=== PATIENT | female | born 1985 | race Caucasian/White ===

== ENCOUNTER 2019-02-14 23:10 | Emergency (ER) | payer MEDICAID ==
[~2019-02-14] VITALS: Ht 160 cm; Wt 93.0 kg
[2019-02-14 23:24] VITALS: BP 131/95
--- NOTE | 2019-02-14 23:36 | NUR ---
PT TRIAGED, SENT BACK TO LOBBY AWAITING BED
[2019-02-14] MEDS ORDERED: NACL 0.9% 1,000 ML IV ONE (23:45)
[2019-02-14] MEDS ORDERED: PANTOPRAZOLE 40 MG INJ VIAL IVP ONE (23:45)
--- NOTE | 2019-02-14 23:58 | NUR ---
PT AMBULATED TO BED 5
[2019-02-15 00:01] LABS: BASOPHILS # (AUTO) 0.1 K/uL (0.00-0.22); BASOPHILS % (AUTO) 0.8 % (0.0-2.0); EOSINOPHILS # (AUTO) 0.3 K/uL (0-0.4); EOSINOPHILS % (AUTO) 2.9 % (0.0-4.0); HEMATOCRIT 39.8 % (36-48); HEMOGLOBIN 13.4 g/dL (12.0-16.0); LYMPHOCYTES # (AUTO) 1.8 K/uL (2.5-16.5); LYMPHOCYTES % (AUTO) 16.9 % (20.5-51.1); MEAN CORPUSCULAR HEMOGLOBIN 29 pg (27-31); MEAN CORPUSCULAR HGB CONC 34 g/dL (33-37); MEAN CORPUSCULAR VOLUME 86.9 fL (80-94); MONOCYTES # (AUTO) 0.4 K/uL (0.8-1.0); MONOCYTES % (AUTO) 3.5 % (1.7-9.3); NEUTROPHILS % (AUTO) 75.9 % (42.2-75.2); PLATELET COUNT (AUTO) 208 K/uL (140-450); RED BLOOD CELL COUNT(AUTO) 4.58 MIL/uL (4.20-5.40); RED CELL DISTRIBUTION WIDTH 15.4 % (11.6-13.7); WHITE BLOOD COUNT (AUTO) 10.5 K/uL (4.8-10.8)
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
[2019-02-15 00:03] LABS: APPEARANCE,URINE CLEAR (CLEAR); BILIRUBIN,URINE NEGATIVE (NEGATIVE); BLOOD, URINE 2+ (NEGATIVE); COLOR,URINE YELLOW (YELLOW); LEUKOCYTE ESTERASE ,URINE NEGATIVE (NEGATIVE); NITRITE, URINE NEGATIVE (NEGATIVE); PH,URINE 5.5 (5.0-9.0); UGLUCOSE NEGATIVE (NEGATIVE)
[2019-02-15 00:08] LABS: ANION GAP 12.1 (8-16); CARBON DIOXIDE 25.1 mmol/L (21-32); CREATININE 0.6 mg/dL (0.6-1.3); POTASSIUM 4.2 mmol/L (3.5-5.1)
[2019-02-15 00:15] LABS: ALBUMIN 3.4 g/dL (3.4-5.0); TOTAL BILIRUBIN 0.2 mg/dL (0.0-1.0)
[2019-02-15 00:21] LABS: RBC,URINE 11-20 (MOD) /HPF (0-5); WBC,URINE 0-5 /HPF (0-5)
--- NOTE | 2019-02-15 00:55 | NUR ---
PT RESTING IN BED WITH EYES CLOSED, EASILY ARROUSABLE. VSS. WILL CONTINUE TO MONITOR.
[2019-02-15] MEDS ORDERED: DICYCLOMINE HCL LIQUID 20 MG, ALUMINUM HYD/MAG/SIMETHICONE 30 ML, LIDOCAINE VISCOUS 2% ... PO ONE ×3 (01:05)
[2019-02-15] MEDS ORDERED: MORPHINE SULFATE 4 MG/ML SYR IVP ONE (01:05)
[2019-02-15 02:03] VITALS: BP 115/79
--- NOTE | 2019-02-15 02:03 | NUR ---
Patient discharged with v/s stable. Written and verbal after care instructions given and explained. Patient alert, oriented and verbalized understanding of instructions. Ambulatory with steady gait. All questions addressed prior to discharge. ID band removed. Patient advised to follow up with PMD. Rx of RANITIDINE, CIPROFLOXACIN WAS given. Patient educated on indication of medication including possible reaction and side effects. Opportunity to ask questions provided and answered. PT STATED HER PAIN DECREASED TO 0/10 PRIOR TO D/C
== END 2019-02-15 02:03 | disposition home or self-care (01) ==
LOC: MED 23:10
DX: N39.0 Urinary tract infection, site not specified (principal); K29.70 Gastritis, unspecified, without bleeding; F41.9 Anxiety disorder, unspecified; F32.9 Major depressive disorder, single episode, unspecified
CPT/HCPCS: 36415; 80053; 81001; 83690; 85025; 87086; 96361; 96374; 96375; 99283; C9113; J2270; J7030

== ENCOUNTER 2019-09-17 18:51 | Emergency (ER) | payer MEDICAID ==
[~2019-09-17] VITALS: Ht 158.8 cm; Wt 92.5 kg
[2019-09-17 19:03] VITALS: BP 134/98
--- NOTE | 2019-09-17 19:30 | NUR ---
PT AMBULATED TO BED 3 WITH STEADY GAIT.
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
--- NOTE | 2019-09-17 19:45 | NUR ---
MALINA DOUGLAS AT BEDSIDE.
[2019-09-17] MEDS ORDERED: HYDROcodone/APAP 5/325 MG 1 TAB TAB PO ONE (20:15)
--- NOTE | 2019-09-17 20:15 | NUR ---
NORCO 5/325MG GIVEN PO FOR 8/10 FACIAL PAIN. PT WILL BE GIVEN A RIDE HOME BY PARTNER.
[2019-09-17 20:30] VITALS: BP 134/98
== END 2019-09-17 20:30 | disposition home or self-care (01) ==
LOC: MED 18:51
DX: K08.89 Other specified disorders of teeth and supporting structures (principal)
CPT/HCPCS: 99283

== ENCOUNTER 2019-09-25 13:53 | Emergency (ER) | payer MEDICAID ==
[~2019-09-25] VITALS: Ht 160 cm; Wt 94.0 kg
[2019-09-25 13:58] VITALS: BP 110/71
--- NOTE | 2019-09-25 14:15 | NUR ---
PATIENT AMBULATED TO BED 4.
[2019-09-25] MEDS ORDERED: AMPICILLIN/SULBACTAM 3 GM in NACL 0.9% 100 ML IV ONE (14:20)
[2019-09-25] MEDS ORDERED: KETOROLAC 30 MG/ML VIAL IVP ONE (14:20)
[2019-09-25] MEDS ORDERED: AMPICILLIN/SULBACTAM 3 GM VIAL ONE (14:40)
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
--- NOTE | 2019-09-25 15:54 | NUR ---
iv antibiotics done, pt awake , alert.
--- NOTE | 2019-09-25 15:58 | NUR ---
dr galvez ordered dc of iv. and at bedside reevalauting pt.
--- NOTE | 2019-09-25 16:00 | NUR ---
Patient discharged with v/s stable. Written and verbal after care instructions given and Dr galvez explained regarding cellulitis. Patient alert, oriented and verbalized understanding of instructions. Ambulatory with steady gait. All questions addressed prior to discharge. ID band removed. Patient advised to follow up with PMD. Rx of penicillin given. Patient educated on indication of medication including possible reaction and side effects. Opportunity to ask questions provided and answered.Dr galvez discharge pt.
[2019-09-25 16:01] VITALS: BP 110/71
== END 2019-09-25 16:00 | disposition home or self-care (01) ==
LOC: MED 13:53
DX: K12.2 Cellulitis and abscess of mouth (principal); Z98.890 Other specified postprocedural states
CPT/HCPCS: 36415; 87040; 96365; 96375; 99284; J0295; J1885

== ENCOUNTER 2019-11-28 20:36 | Emergency (ER) | payer SELFPAY ==
[~2019-11-28] VITALS: Ht 157.5 cm; Wt 93.4 kg
[2019-11-28 20:41] VITALS: BP 118/83
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
[2019-11-28] MEDS ORDERED: LIDOCAINE/EPI 1% 1:100000 20 ML VIAL INJ ONE (20:55)
--- NOTE | 2019-11-28 20:58 | NUR ---
SUTURE SETUP AT BEDSIDE
--- NOTE | 2019-11-28 21:00 | NUR ---
ERMD AT BEDSIDE
[2019-11-28] MEDS ORDERED: BACITRACIN OINT 500 UNITS/GM PKT TP ONE ×2 (21:13→21:15)
[2019-11-28 21:46] VITALS: BP 118/83
--- NOTE | 2019-11-28 21:46 | NUR ---
Patient discharged with v/s stable. Written and verbal after care instructions given and explained. Patient verbalized understanding. Ambulatory with steady gait. All questions addressed prior to discharge. Advised to follow up with PMD.
== END 2019-11-28 21:46 | disposition home or self-care (01) ==
LOC: MED 20:36
DX: S61.411A Laceration without foreign body of right hand, initial encounter (principal); W26.9XXA Contact with unspecified sharp object(s), initial encounter; Y93.89 Activity, other specified; Y92.89 Other specified places as the place of occurrence of the external cause; Y99.8 Other external cause status
CPT/HCPCS: 12002; 90471; 90715; 99283; J2001

== ENCOUNTER 2019-12-30 22:53 | Emergency (ER) | payer MEDICAID ==
[~2019-12-30] VITALS: Ht 157.5 cm; Wt 96.2 kg
[2019-12-30 22:56] VITALS: BP 122/77
[2019-12-30] MEDS ORDERED: DICYCLOMINE HCL LIQUID 10 MG/5 ML UDC PO ONE (23:25)
[2019-12-30] MEDS ORDERED: ALUMINUM HYD/MAG/SIMETHICONE 30 ML UDC PO ONE (23:25)
[2019-12-30] MEDS ORDERED: KETOROLAC 60 MG/2 ML VIAL IM ONE (23:25)
[2019-12-30] MEDS ORDERED: LIDOCAINE VISCOUS 2% 20 ML UDC PO ONE (23:25)
[2019-12-31 00:25] VITALS: BP 122/77
== END 2019-12-31 00:25 | disposition home or self-care (01) ==
LOC: MED 22:53
DX: S39.012A Strain of muscle, fascia and tendon of lower back, initial encounter (principal); X58.XXXA Exposure to other specified factors, initial encounter; Y93.89 Activity, other specified; Y92.89 Other specified places as the place of occurrence of the external cause; Y99.8 Other external cause status; K29.70 Gastritis, unspecified, without bleeding
CPT/HCPCS: 81002; 81025; 96372; 99283; J1885; 96374

== ENCOUNTER 2020-01-09 23:55 | Emergency (ER) | payer MEDICAID ==
[~2020-01-09] VITALS: Ht 157.5 cm; Wt 99.8 kg
[2020-01-09 23:59] VITALS: BP 127/84
--- NOTE | 2020-01-10 00:05 | NUR ---
PT AMBULATED TO BED 1 WITH STEADY GAIT
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
[2020-01-10] MEDS ORDERED: LIDOCAINE 2% 1000 MG/50 ML VIAL INJ ONE (00:40)
--- NOTE | 2020-01-10 00:44 | NUR ---
Dr. Chaudhry examining patient.
[2020-01-10] MEDS ORDERED: BACITRACIN OINT 500 UNITS/GM PKT TP ONE ×2 (00:47→00:50)
[2020-01-10] MEDS ORDERED: IBUPROFEN 800 MG TAB ONE ×2 (00:52→00:55)
[2020-01-10] MEDS ORDERED: NEOMYCIN/POLYMYXIN/BACITRACIN 0.9 GM/1 PKT TP ONE (00:55)
[2020-01-10] MEDS ORDERED: IBUPROFEN 800 MG TAB PO ONE (00:55)
[2020-01-10 01:18] VITALS: BP 127/84
--- NOTE | 2020-01-10 01:19 | NUR ---
Patient discharged with v/s stable. Written and verbal after care instructions given and explained. Patient alert, oriented and verbalized understanding of instructions. Ambulatory with steady gait. All questions addressed prior to discharge. ID band removed. Patient advised to follow up with PMD. Rx of BACTRIM; MOTRIN given. Patient educated on indication of medication including possible reaction and side effects. Opportunity to ask questions provided and answered.
== END 2020-01-10 01:19 | disposition home or self-care (01) ==
LOC: MED 23:55
DX: S61.412A Laceration without foreign body of left hand, initial encounter (principal); W26.0XXA Contact with knife, initial encounter; Y93.89 Activity, other specified; Y92.89 Other specified places as the place of occurrence of the external cause; Y99.8 Other external cause status
CPT/HCPCS: 12001; 99283; J2001

== ENCOUNTER 2020-01-18 23:00 | Emergency (ER) | payer MEDICAID ==
[~2020-01-18] VITALS: Ht 157.5 cm; Wt 95.3 kg
[2020-01-18 23:05] VITALS: BP 144/99
--- NOTE | 2020-01-18 23:05 | NUR ---
PT CAME IN FOR SUTURE RECHECK, PLACED 4 DAYS AGO, STATING POSSIBLE INFECTION ON L THUMB. NO REDNESS OR DEFORMITIES NOTED. CAP REFILL LESS THAN 2 SECONDS. PMH: NONE NKA
--- NOTE | 2020-01-18 23:05 | NUR ---
PT TAKEN TO BED 4
--- NOTE | 2020-01-18 23:23 | NUR ---
Dr. Chaudhry examining patient.
== END 2020-01-18 23:30 | disposition home or self-care (01) ==
LOC: MED 23:00
DX: S61.412D Laceration without foreign body of left hand, subsequent encounter (principal); X58.XXXD Exposure to other specified factors, subsequent encounter; Z48.02 Encounter for removal of sutures
CPT/HCPCS: 82948; 99283

== ENCOUNTER 2020-04-17 14:34 | Emergency (ER) | payer MEDICAID ==
[~2020-04-17] VITALS: Ht 167.6 cm; Wt 94.3 kg
[2020-04-17 14:37] VITALS: BP 116/80
[2020-04-17 14:50] VITALS: BP 116/80
--- NOTE | 2020-04-17 14:50 | NUR ---
DR BRADSHAW AT BEDSIDE EVALAUTING PT.
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
[2020-04-17] MEDS ORDERED: KETOROLAC 60 MG/2 ML VIAL IM ONE (15:00)
--- NOTE | 2020-04-17 15:20 | NUR ---
denny [email or web address].[email or web address] parsons and davey puga.
--- NOTE | 2020-04-17 15:20 | NUR ---
PATIENT ELOPED FROM FACILITY. DISCHARGE INSTRUCTIONS NOT GIVEN TO PATIENT. DR. hou NOTIFIED.
== END 2020-04-17 15:20 | disposition left against medical advice (07) ==
LOC: MED 14:34
DX: M54.9 Dorsalgia, unspecified (principal); F17.200 Nicotine dependence, unspecified, uncomplicated; Z71.6 Tobacco abuse counseling
CPT/HCPCS: 99281; J1885

== ENCOUNTER 2020-04-19 01:50 | Emergency (ER) | payer MEDICAID ==
[~2020-04-19] VITALS: Ht 157.5 cm; Wt 94.3 kg
[2020-04-19 01:52] VITALS: BP 124/76
--- NOTE | 2020-04-19 01:52 | NUR ---
PT AMBULATED TO BED #11
--- NOTE | 2020-04-19 02:05 | NUR ---
COVERING PRIMARY RN FOR LUNCH RELIEF--- SEE COMPLETE ASSESSMENT FOR ADDITIONAL INFORMAITION
[2020-04-19] MEDS ORDERED: KETOROLAC 30 MG/ML VIAL IM ONE (02:10)
[2020-04-19 02:33] VITALS: BP 124/76
--- NOTE | 2020-04-19 02:33 | NUR ---
Patient discharged with v/s stable. Written and verbal after care instructions given and explained. Patient alert, oriented and verbalized understanding of instructions. Ambulatory with steady gait. All questions addressed prior to discharge. ID band removed. Patient advised to follow up with PMD. Rx of IBUPROFEN & FLEXERIL given. Patient educated on indication of medication including possible reaction and side effects. Opportunity to ask questions provided and answered.
== END 2020-04-19 02:33 | disposition home or self-care (01) ==
LOC: MED 01:50
DX: S16.1XXA Strain of muscle, fascia and tendon at neck level, initial encounter (principal); S39.012A Strain of muscle, fascia and tendon of lower back, initial encounter; V03.99XA Pedestrian with other conveyance injured in collision with car, pick-up truck or van, unspecified whether traffic or nontraffic accident, initial encounter; Y93.89 Activity, other specified; Y92.89 Other specified places as the place of occurrence of the external cause; Y99.8 Other external cause status
CPT/HCPCS: 96372; 99283; J1885

== ENCOUNTER 2020-04-19 12:51 | Emergency (ER) | payer MEDICAID ==
[~2020-04-19] VITALS: Ht 160 cm; Wt 95.7 kg
[2020-04-19 13:01] VITALS: BP 119/87
[2020-04-19 14:44] VITALS: BP 122/86
== END 2020-04-19 14:44 | disposition home or self-care (01) ==
LOC: MED 12:51
DX: M79.18 Myalgia, other site (principal); X58.XXXA Exposure to other specified factors, initial encounter; Y93.89 Activity, other specified; Y92.89 Other specified places as the place of occurrence of the external cause; Y99.8 Other external cause status
CPT/HCPCS: 71046; 99283

== ENCOUNTER 2020-08-10 19:48 | Emergency (ER) | payer MEDICAID, SELFPAY ==
[~2020-08-10] VITALS: Ht 157.5 cm; Wt 95.3 kg
[2020-08-10 20:05] VITALS: BP 136/78
[2020-08-10] MEDS ORDERED: KETOROLAC 30 MG/ML VIAL IM ONE (21:25)
[2020-08-10 23:00] VITALS: BP 128/80
== END 2020-08-10 23:01 | disposition home or self-care (01) ==
LOC: MED 19:48
DX: M54.9 Dorsalgia, unspecified (principal); R06.02 Shortness of breath; R05 Cough; Z20.828 Contact with and (suspected) exposure to other viral communicable diseases
CPT/HCPCS: 71045; 81002; 81025; 96372; 99284; J1885; U0003

== ENCOUNTER 2020-09-05 11:15 | Emergency (ER) | payer MEDICAID, SELFPAY ==
[~2020-09-05] VITALS: Ht 157.5 cm; Wt 94.8 kg
[2020-09-05 11:22] VITALS: BP 131/96
--- NOTE | 2020-09-05 11:24 | NUR ---
PT AMBULATED TO ER BED 3 FOR FURTHER EVALUATION.
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
--- NOTE | 2020-09-05 12:11 | NUR ---
COVID SWAB AND STREP THROAT SWABS COLLECTED AND SENT TO LAB. HANDED TO JAYLON FROM LAB.
--- NOTE | 2020-09-05 13:08 | NUR ---
PT IS SLEEPING IN BED WITH EVEN AND UNLABORED RESPIRATIONS OBSERVED. VSS. BED IN LOWEST POSITION WITH BRAKES LOCKED X1 SIDERAIL UP. WILL CONTINUE TO MONITOR
--- NOTE | 2020-09-05 14:21 | NUR ---
PT IS RESTING IN BED WITH EVEN AND UNLABORED RESPIRATIONS OBSERVED. PT STATES SHE HAS A HEADACHE/SORE THROAT WITH PAIN 5/10. DR AMARO MADE AWARE.
[2020-09-05] MEDS ORDERED: HYDROcodone/APAP 5/325 MG 1 TAB TAB PO ONE (14:25)
[2020-09-05 14:54] VITALS: BP 128/92
--- NOTE | 2020-09-05 14:55 | NUR ---
Patient discharged with v/s stable. Written and verbal after care instructions given and explained. Patient alert, oriented and verbalized understanding of instructions. Ambulatory with steady gait. All questions addressed prior to discharge. ID band removed. Patient advised to follow up with PMD. Rx of norco 5mg-325mg PO tab q6hr and doxycycline 100mg tab BID PO given. Patient educated on indication of medication including possible reaction and side effects. Opportunity to ask questions provided and answered.
== END 2020-09-05 14:55 | disposition home or self-care (01) ==
LOC: MED 11:15
DX: J18.9 Pneumonia, unspecified organism (principal); E78.00 Pure hypercholesterolemia, unspecified; Z20.822 Contact with and (suspected) exposure to COVID-19; Z86.11 Personal history of tuberculosis
CPT/HCPCS: 71045; 87081; 99284

== ENCOUNTER 2020-09-25 01:23 | Emergency (ER) | payer MEDICAID, SELFPAY ==
[~2020-09-25] VITALS: Ht 157.5 cm; Wt 95.3 kg
[2020-09-25 01:33] VITALS: BP 137/86
[2020-09-25] MEDS ORDERED: NAPR-54 PO (01:49)
[2020-09-25 01:53] VITALS: BP 137/86
== END 2020-09-25 01:53 | disposition home or self-care (01) ==
LOC: MED 01:23
DX: M94.0 Chondrocostal junction syndrome [Tietze] (principal); Z79.899 Other long term (current) drug therapy; Z98.890 Other specified postprocedural states
CPT/HCPCS: 93005; 99283

== ENCOUNTER 2020-10-07 22:46 | Emergency (ER) | payer MEDICAID, SELFPAY ==
[~2020-10-07] VITALS: Ht 157.5 cm; Wt 96.3 kg
[~2020-10-07 22:46] MED LIST: NAPR-54 PO
[2020-10-07 22:50] VITALS: BP 135/99
[2020-10-07] MEDS ORDERED: SODIUM CHLORIDE FLUSH 10 ML SYR IVF STA (23:23)
[2020-10-07] MEDS ORDERED: ALUMINUM HYD/MAG/SIMETHICONE 30 ML UDC PO ONE (23:35)
[2020-10-07 23:47] LABS: BASOPHILS % (AUTO) 0.4 % (0.0-2.0); EOSINOPHILS # (AUTO) 0.3 K/uL (0-0.4); EOSINOPHILS % (AUTO) 3.2 % (0.0-4.0); HEMATOCRIT 39.8 % (36-48); HEMOGLOBIN 13.6 g/dL (12.0-16.0); LYMPHOCYTES # (AUTO) 1.2 K/uL (2.5-16.5); LYMPHOCYTES % (AUTO) 12.8 % (20.5-51.1); MEAN CORPUSCULAR HEMOGLOBIN 30 pg (27-31); MEAN CORPUSCULAR HGB CONC 34 g/dL (33-37); MEAN CORPUSCULAR VOLUME 86.8 fL (80-94); MONOCYTES # (AUTO) 0.4 K/uL (0.8-1.0); MONOCYTES % (AUTO) 4.5 % (1.7-9.3); NEUTROPHILS # (AUTO) 7.1 K/uL (1.8-7.7); NEUTROPHILS % (AUTO) 79.1 % (42.2-75.2); PLATELET COUNT (AUTO) 233 K/uL (140-450); RED BLOOD CELL COUNT(AUTO) 4.59 MIL/uL (4.20-5.40); RED CELL DISTRIBUTION WIDTH 13.1 % (11.6-13.7)
[2020-10-08 00:05] LABS: ALBUMIN 3.4 g/dL (3.4-5.0); ANION GAP 15.1 (8-16); CARBON DIOXIDE 22.7 mmol/L (21-32); CREATININE 0.7 mg/dL (0.6-1.3); POTASSIUM 3.8 mmol/L (3.5-5.1); TOTAL BILIRUBIN 0.2 mg/dL (0.0-1.0)
[2020-10-08] MEDS ORDERED: MORPHINE SULFATE 4 MG/ML SYR IVP ONE (00:30)
[2020-10-08 00:39] LABS: APPEARANCE,URINE CLEAR (CLEAR); COLOR,URINE YELLOW (YELLOW)
[2020-10-08 00:40] LABS: BILIRUBIN,URINE NEGATIVE (NEGATIVE); BLOOD, URINE 1+ (NEGATIVE); LEUKOCYTE ESTERASE ,URINE NEGATIVE (NEGATIVE); NITRITE, URINE NEGATIVE (NEGATIVE); UGLUCOSE NEGATIVE (NEGATIVE)
[2020-10-08 00:48] LABS: WBC,URINE 0-5 /HPF (0-5)
[2020-10-08 02:28] VITALS: BP 119/80
== END 2020-10-08 02:28 | disposition home or self-care (01) ==
LOC: MED 22:46
DX: R10.13 Epigastric pain (principal)
CPT/HCPCS: 36415; 71045; 76700; 80053; 81001; 81025; 83690; 85025; 87086; 93005; 96374; 99285; J2270

== ENCOUNTER 2021-02-07 19:08 | Emergency (ER) | payer MEDICAID ==
[~2021-02-07] VITALS: Ht 157.5 cm; Wt 92.2 kg
[2021-02-07 19:20] VITALS: BP 144/83
--- NOTE | 2021-02-07 19:23 | NUR ---
TO LOBBY A/W BED AMBULATORY
--- NOTE | 2021-02-07 20:38 | NUR ---
CALLED FOR BED -- NO RESPONSE.
--- NOTE | 2021-02-07 20:43 | NUR ---
CALLED FOR BED -- NO RESPONSE.
--- NOTE | 2021-02-07 20:48 | NUR ---
PATIENT LEFT WITHOUT BEING SEEN BY DR. MCKOY. NO FURTHER CARE PROVIDED FOR PATIENT.
== END 2021-02-07 20:40 | disposition left against medical advice (07) ==
LOC: MED 19:08
DX: K62.5 Hemorrhage of anus and rectum (principal); Z53.21 Procedure and treatment not carried out due to patient leaving prior to being seen by health care provider

== ENCOUNTER 2021-07-02 17:02 | Emergency (ER) | payer MEDICAID ==
[~2021-07-02] VITALS: Ht 157.5 cm; Wt 95.3 kg
[2021-07-02 17:11] VITALS: BP 126/92
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
--- NOTE | 2021-07-02 17:31 | NUR ---
DR PERDUE AT BEDSIDE EXAMINING PT
[2021-07-02] MEDS ORDERED: MORPHINE SULFATE 4 MG/ML SYR IVP ONE (17:35)
[2021-07-02] MEDS ORDERED: KETOROLAC 30 MG/ML VIAL IVP ONE (17:35)
[2021-07-02] MEDS ORDERED: ONDANSETRON 4 MG/2 ML VIAL IVP ONE (17:35)
--- NOTE | 2021-07-02 18:29 | NUR ---
PT TAKEN TO CT SCAN VIA W/C
--- NOTE | 2021-07-02 18:55 | NUR ---
PT RETURNED FROM CT SCAN
--- NOTE | 2021-07-02 19:16 | NUR ---
Pt report given to LADARIUS MCKINNEY. Transfer of care at this time.
--- NOTE | 2021-07-02 19:20 | NUR ---
CUP OF WATE GIVEN, TOLERATES WELL
[2021-07-02] MEDS ORDERED: NAPR-54 PO (19:42)
[2021-07-02] MEDS ORDERED: METH4TAB1 PO (19:48)
[2021-07-02 20:26] VITALS: BP 126/92
--- NOTE | 2021-07-02 20:26 | NUR ---
Patient discharged with v/s stable. Written and verbal after care instructions given and explained. Patient alert, oriented and verbalized understanding of instructions. Ambulatory with steady gait. All questions addressed prior to discharge. ID band removed. Patient advised to follow up with PMD. Rx of MEDROL, AND NAPROSYN given. Patient educated on indication of medication including possible reaction and side effects. Opportunity to ask questions provided and answered.
== END 2021-07-02 20:26 | disposition home or self-care (01) ==
LOC: MED 17:02
DX: M51.26 Other intervertebral disc displacement, lumbar region (principal); M54.9 Dorsalgia, unspecified; F17.210 Nicotine dependence, cigarettes, uncomplicated; W19.XXXA Unspecified fall, initial encounter; Y93.89 Activity, other specified; Y92.89 Other specified places as the place of occurrence of the external cause; Y99.8 Other external cause status
CPT/HCPCS: 72131; 72192; 96374; 96375; 99284; J1885; J2270; J2405

== ENCOUNTER 2021-12-14 01:21 | Emergency (ER) | payer MEDICAID ==
[~2021-12-14] VITALS: Ht 162.6 cm; Wt 94.8 kg
[~2021-12-14 01:21] MED LIST changes: +METH4TAB1 PO
[2021-12-14 01:35] VITALS: BP 123/99
--- NOTE | 2021-12-14 01:54 | NUR ---
ERMD AT BEDSIDE ASSESSING PT.
--- NOTE | 2021-12-14 01:56 | NUR ---
PT ASSESSMENT COMPLETED BY DALTON. NO NURSING INTERVENTIONS REQUIRED AT THIS TIME.
[2021-12-14] MEDS ORDERED: NAPR-54 PO (02:28)
[2021-12-14 02:34] VITALS: BP 123/99
== END 2021-12-14 02:32 | disposition home or self-care (01) ==
LOC: MED 01:21
DX: S23.9XXA Sprain of unspecified parts of thorax, initial encounter (principal); Z79.899 Other long term (current) drug therapy; Z79.1 Long term (current) use of non-steroidal anti-inflammatories (NSAID); X58.XXXA Exposure to other specified factors, initial encounter; Y92.89 Other specified places as the place of occurrence of the external cause; Y93.89 Activity, other specified; Y99.8 Other external cause status
CPT/HCPCS: 93005; 99283

== ENCOUNTER 2022-01-05 23:58 | Emergency (ER) | payer MEDICAID ==
[~2022-01-05] VITALS: Ht 154.9 cm; Wt 99.9 kg
[2022-01-06 00:34] VITALS: BP 133/96
--- NOTE | 2022-01-06 00:37 | NUR ---
PT TO LOBBY.
--- NOTE | 2022-01-06 00:52 | NUR ---
pt to bed 11 with RN
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
[2022-01-06 01:19] LABS: BASOPHILS # (AUTO) 0.1 K/uL (0.00-0.22); BASOPHILS % (AUTO) 0.7 % (0.0-2.0); EOSINOPHILS # (AUTO) 0.4 K/uL (0-0.4); EOSINOPHILS % (AUTO) 3.8 % (0.0-4.0); HEMOGLOBIN 13.4 g/dL (12.0-16.0); LYMPHOCYTES # (AUTO) 1.9 K/uL (2.5-16.5); LYMPHOCYTES % (AUTO) 17.9 % (20.5-51.1); MEAN CORPUSCULAR HEMOGLOBIN 29 pg (27-31); MEAN CORPUSCULAR HGB CONC 34 g/dL (33-37); MEAN CORPUSCULAR VOLUME 85.4 fL (80-94); MONOCYTES # (AUTO) 0.5 K/uL (0.8-1.0); MONOCYTES % (AUTO) 4.5 % (1.7-9.3); NEUTROPHILS # (AUTO) 7.8 K/uL (1.8-7.7); NEUTROPHILS % (AUTO) 73.1 % (42.2-75.2); PLATELET COUNT (AUTO) 225 K/uL (140-450); RED BLOOD CELL COUNT(AUTO) 4.68 MIL/uL (4.20-5.40); RED CELL DISTRIBUTION WIDTH 14.4 % (11.6-13.7); WHITE BLOOD COUNT (AUTO) 10.7 K/uL (4.8-10.8)
[2022-01-06 01:35] LABS: ALBUMIN 3.4 g/dL (3.4-5.0); ANION GAP 8.4 (8-16); CARBON DIOXIDE 27.6 mmol/L (21-32); CREATININE 0.6 mg/dL (0.6-1.3); TOTAL BILIRUBIN 0.2 mg/dL (0.0-1.0)
[2022-01-06] MEDS ORDERED: ALUMINUM HYD/MAG/SIMETHICONE 30 ML UDC ONE (02:20)
[2022-01-06] MEDS ORDERED: DICYCLOMINE HCL LIQUID 10 MG/5 ML UDC ONE (02:21)
[2022-01-06] MEDS: KETOROLAC 30 MG/ML VIAL IM ONE (02:33)
[2022-01-06] MEDS: DICYCLOMINE HCL LIQUID 20 MG, ALUMINUM HYD/MAG/SIMETHICONE 30 ML, LIDOCAINE VISCOUS 2% ... PO ONE ×3 (02:34)
[2022-01-06] MEDS ORDERED: MAG-27 PO (03:02)
[2022-01-06 03:10] VITALS: BP 133/96
== END 2022-01-06 03:10 | disposition home or self-care (01) ==
LOC: MED 23:58
DX: R10.13 Epigastric pain (principal); F17.210 Nicotine dependence, cigarettes, uncomplicated; Z98.890 Other specified postprocedural states
CPT/HCPCS: 36415; 80053; 82150; 83690; 84703; 85025; 96372; 99283; J1885

== ENCOUNTER 2022-07-31 18:33 | Emergency (ER) | payer MEDICAID ==
[~2022-07-31] VITALS: Ht 157.5 cm; Wt 89.8 kg
[~2022-07-31 18:33] MED LIST changes: +MAG-27 PO
[2022-07-31 18:38] VITALS: BP 136/99
--- NOTE | 2022-07-31 21:02 | NUR ---
PATIENT LEFT WITHOUT BEING SEEN BY DR. Monroy. NO FURTHER CARE PROVIDED FOR PATIENT.
== END 2022-07-31 21:02 | disposition left against medical advice (07) ==
LOC: MED 18:33
DX: M54.9 Dorsalgia, unspecified (principal); Z53.21 Procedure and treatment not carried out due to patient leaving prior to being seen by health care provider

== ENCOUNTER 2022-08-26 19:05 | Emergency (ER) | payer MEDICAID ==
[~2022-08-26] VITALS: Ht 157.5 cm; Wt 86.2 kg
[2022-08-26 19:10] VITALS: BP 125/82
--- NOTE | 2022-08-26 19:15 | NUR ---
PT W/C ASSISTED TO BED 3.
--- NOTE | 2022-08-26 19:38 | NUR ---
Dr. Liang examining patient.
[2022-08-26] MEDS ORDERED: HYDROcodone/APAP 5/325 MG 1 TAB TAB PO ONE (19:50)
[2022-08-26 22:02] VITALS: BP 122/82
--- NOTE | 2022-08-26 22:02 | NUR ---
Patient discharged with v/s stable. Written and verbal after care instructions given and explained. Patient verbalized understanding. Wheel Chair Assisted with to car. All questions addressed prior to discharge. Advised to follow up with PMD.
== END 2022-08-26 22:02 | disposition home or self-care (01) ==
LOC: MED 19:05
DX: M25.461 Effusion, right knee (principal); Z79.899 Other long term (current) drug therapy; Z79.1 Long term (current) use of non-steroidal anti-inflammatories (NSAID); V19.9XXA Pedal cyclist (driver) (passenger) injured in unspecified traffic accident, initial encounter; Y93.89 Activity, other specified; Y92.410 Unspecified street and highway as the place of occurrence of the external cause; Y99.8 Other external cause status
CPT/HCPCS: 29505; 73562; 99283

== ENCOUNTER 2022-09-14 18:49 | Emergency (ER) | payer MEDICAID, OTHER ==
[~2022-09-14] VITALS: Ht 157.5 cm; Wt 90.7 kg
[2022-09-14 19:08] VITALS: BP 152/101
--- NOTE | 2022-09-14 20:15 | NUR ---
PT CALLED IN LOBBY AND OUTSIDE BY BRITTNEY WITH NO ANSWER. PT LWBS
== END 2022-09-14 20:15 | disposition left against medical advice (07) ==
LOC: MED 18:49
DX: K08.89 Other specified disorders of teeth and supporting structures (principal); Z53.21 Procedure and treatment not carried out due to patient leaving prior to being seen by health care provider

== ENCOUNTER 2022-09-14 21:05 | Emergency (ER) | payer MEDICAID ==
[~2022-09-14] VITALS: Ht 157.5 cm; Wt 90.7 kg
[2022-09-14 21:20] VITALS: BP 152/101
[2022-09-14] MEDS ORDERED: KETOROLAC 60 MG/2 ML VIAL IM ONE (22:10)
--- NOTE | 2022-09-14 22:45 | NUR ---
Patient taken to bed 8.
--- NOTE | 2022-09-14 22:59 | NUR ---
pt called twice by Dr. Headley with no answer.
--- NOTE | 2022-09-14 23:09 | NUR ---
Called no show in lobby or outside.
--- NOTE | 2022-09-14 23:11 | NUR ---
PT LWBS NO MEDICATION GIVEN
== END 2022-09-14 23:11 | disposition left against medical advice (07) ==
LOC: MED 21:05
DX: K08.89 Other specified disorders of teeth and supporting structures (principal); Z53.21 Procedure and treatment not carried out due to patient leaving prior to being seen by health care provider
CPT/HCPCS: J1885

== ENCOUNTER 2022-12-10 14:14 | Emergency (ER) | payer MEDICAID ==
[~2022-12-10] VITALS: Ht 157.5 cm; Wt 86.6 kg
[2022-12-10 14:15] VITALS: BP 126/79
--- NOTE | 2022-12-10 14:21 | NUR ---
URINE SPECIMEN CUP GIVEN
[2022-12-10 15:05] LABS: APPEARANCE,URINE CLEAR (CLEAR); BILIRUBIN,URINE NEGATIVE (NEGATIVE); BLOOD, URINE 2+ (NEGATIVE); COLOR,URINE YELLOW (YELLOW); LEUKOCYTE ESTERASE ,URINE NEGATIVE (NEGATIVE); NITRITE, URINE NEGATIVE (NEGATIVE); UGLUCOSE NEGATIVE (NEGATIVE)
[2022-12-10 15:08] LABS: BASOPHILS % (AUTO) 0.3 % (0.0-2.0); EOSINOPHILS # (AUTO) 0.2 K/uL (0-0.4); EOSINOPHILS % (AUTO) 3.1 % (0.0-4.0); HEMATOCRIT 37.6 % (36-48); HEMOGLOBIN 12.5 g/dL (12.0-16.0); LYMPHOCYTES # (AUTO) 1.1 K/uL (2.5-16.5); LYMPHOCYTES % (AUTO) 17.2 % (20.5-51.1); MEAN CORPUSCULAR HEMOGLOBIN 29 pg (27-31); MEAN CORPUSCULAR HGB CONC 33 g/dL (33-37); MEAN CORPUSCULAR VOLUME 86.8 fL (80-94); MONOCYTES # (AUTO) 0.3 K/uL (0.8-1.0); MONOCYTES % (AUTO) 4.1 % (1.7-9.3); NEUTROPHILS # (AUTO) 4.8 K/uL (1.8-7.7); NEUTROPHILS % (AUTO) 75.3 % (42.2-75.2); PLATELET COUNT (AUTO) 222 K/uL (140-450); RED BLOOD CELL COUNT(AUTO) 4.33 MIL/uL (4.20-5.40); RED CELL DISTRIBUTION WIDTH 13.6 % (11.6-13.7); WHITE BLOOD COUNT (AUTO) 6.4 K/uL (4.8-10.8)
[2022-12-10 15:25] LABS: ANION GAP 9.2 (8-16); CARBON DIOXIDE 29.6 mmol/L (21-32); CREATININE 0.7 mg/dL (0.6-1.3); POTASSIUM 3.8 mmol/L (3.5-5.1)
--- NOTE | 2022-12-10 16:30 | NUR ---
CT ATTEMPTED TO FIND PT, NOT FOUND IN LOBBY/OUTSIDE
--- NOTE | 2022-12-10 17:01 | NUR ---
2ND ATTEMPT, PT NOT FOUND IN LOBBY/OUTSIDE
--- NOTE | 2022-12-10 17:11 | NUR ---
LAST ATTEMPT, NOT FOUND. PATIENT ELOPED FROM FACILITY. DISCHARGE INSTRUCTIONS NOT GIVEN TO PATIENT. DR. MERCADO NOTIFIED.
== END 2022-12-10 16:30 | disposition left against medical advice (07) ==
LOC: MED 14:14
DX: M54.9 Dorsalgia, unspecified (principal); R30.0 Dysuria; R10.9 Unspecified abdominal pain; Z79.899 Other long term (current) drug therapy
CPT/HCPCS: 36415; 80048; 81001; 81025; 85025; 99283

== ENCOUNTER 2024-03-17 23:50 | Emergency (ER) | payer SELFPAY ==
[~2024-03-17] VITALS: Ht 157.5 cm; Wt 95.3 kg
[~2024-03-17 23:50] MED LIST changes: +NAPR-337 PO; -NAPR-54 PO
[2024-03-18 00:03] VITALS: BP 129/91; PULSE 86; RESP 16; TEMP 97.2
[2024-03-18 01:36] LABS: BASOPHILS % (AUTO) 0.4 % (0.0-2.0); EOSINOPHILS # (AUTO) 0.2 K/uL (0-0.4); EOSINOPHILS % (AUTO) 3.3 % (0.0-4.0); HEMATOCRIT 36.8 % (36-48); HEMOGLOBIN 12.1 g/dL (12.0-16.0); LYMPHOCYTES # (AUTO) 2.4 K/uL (2.5-16.5); LYMPHOCYTES % (AUTO) 36.6 % (20.5-51.1); MEAN CORPUSCULAR HEMOGLOBIN 27 pg (27-31); MEAN CORPUSCULAR HGB CONC 33 g/dL (33-37); MEAN CORPUSCULAR VOLUME 83.1 fL (80-94); MONOCYTES # (AUTO) 0.4 K/uL (0.8-1.0); MONOCYTES % (AUTO) 6.1 % (1.7-9.3); NEUTROPHILS # (AUTO) 3.5 K/uL (1.8-7.7); NEUTROPHILS % (AUTO) 53.6 % (42.2-75.2); PLATELET COUNT (AUTO) 281 K/uL (140-450); RED BLOOD CELL COUNT(AUTO) 4.43 MIL/uL (4.20-5.40); RED CELL DISTRIBUTION WIDTH 15.8 % (11.6-13.7); WHITE BLOOD COUNT (AUTO) 6.6 K/uL (4.8-10.8)
[2024-03-18 01:42] LABS: ANION GAP 12.1 (8-16); CALCIUM 8.5 mg/dL (8.5-10.1); CARBON DIOXIDE 25.4 mmol/L (21-32); CREATININE 0.7 mg/dL (0.6-1.3); POTASSIUM 3.5 mmol/L (3.5-5.1)
[2024-03-18] MEDS ORDERED: ONDA-188 SL (02:23)
[2024-03-18 02:34] VITALS: BP 122/87; PULSE 80; RESP 16; TEMP 97.2
== END 2024-03-18 02:34 | disposition home or self-care (01) ==
LOC: MED 23:50
DX: R07.89 Other chest pain (principal); R11.2 Nausea with vomiting, unspecified; M79.602 Pain in left arm; M79.605 Pain in left leg; R06.02 Shortness of breath; R53.83 Other fatigue; Z79.899 Other long term (current) drug therapy
CPT/HCPCS: 36415; 80048; 84484; 85025; 93005; 99284